=== PATIENT | female | born 1995 | race American Indian/Alaskan Native ===

== ENCOUNTER 2017-04-03 17:29 | Emergency (ER) | payer MEDICAID ==
[2017-04-03 17:54] VITALS: BP 127/82
[2017-04-03 18:20] LABS: Basophils % (Auto) 0.5 % (0.0-1.8); Eosinophils % (Auto) 2.2 % (0.0-4.3); Hematocrit 41.9 % (30.3-42.9); Hemoglobin 14.1 gm/dl (10.1-14.3); Mean Corpuscular HGB Conc 34 % (30-34); Mean Corpuscular Hemoglobin 30 pg (28-32); Mean Corpuscular Volume 90 fl (79-97); Platelet Count 248 K/mm3 (140-440); Red Blood Count 4.66 M/mm3 (3.65-5.03); Red Cell Distribution Width 13.3 % (13.2-15.2); White Blood Count 8.9 K/mm3 (4.5-11.0)
[2017-04-03 18:35] LABS: Anion Gap 19 mmol/L; BUN/Creatinine Ratio 21.42; Blood Urea Nitrogen 15 mg/dL (7-17); Calcium 9.8 mg/dL (8.4-10.2); Carbon Dioxide 24 mmol/L (22-30); Chloride 102.5 mmol/L (98-107); Glucose 116 mg/dL (65-100); Potassium 4.1 mmol/L (3.6-5.0); Sodium 141 mmol/L (137-145)
--- NOTE | 2017-04-08 11:09 | ED Elopement Review ---
ED Pt Elopement review - Results review Lab results: Laboratory Tests 04/03/17 04/03/17 04/03/17 17:59 17:59 17:59 WBC 8.9 RBC 4.66 Hgb 14.1 Hct 41.9 MCV 90 MCH 30 MCHC 34 RDW 13.3 Plt Count 248 Lymph % (Auto) 28.9 [place] % (Auto) 4.8 Eos % (Auto) 2.2 Baso % (Auto) 0.5 Lymph # 2.6 [place] # 0.4 Eos # 0.2 Baso # 0.0 Seg Neutrophils % 63.6 Seg Neutrophils # 5.6 Sodium 141 Potassium 4.1 Chloride 102.5 Carbon Dioxide 24 Anion Gap 19 BUN 15 Creatinine 0.7 Estimated GFR > 60 BUN/Creatinine Ratio 21.42 Glucose 116 H Calcium 9.8 Plasma/Serum Alcohol < 0.01 - Call Back decision Pt Call Back Decision: No action required
== END 2017-04-03 18:13 | disposition left against medical advice (07) ==
LOC: ED 17:29
DX: Z00.8 Encounter for other general examination (principal); Z53.21 Procedure and treatment not carried out due to patient leaving prior to being seen by health care provider
CPT/HCPCS: 36415; 80048; 85025; G0480; 80320